=== PATIENT | male | born 1990 | race Caucasian/White ===

== ENCOUNTER 2020-02-20 15:07 | Emergency (ER) | payer SELFPAY ==
[2020-02-20] MEDS ORDERED: ACETAMINOPHEN 500 MG TABLET (FP) PO ONE (15:09)
[2020-02-20] MEDS ORDERED: ONDANSETRON *ODT* 4 MG TABLET SL ONE (15:11)
[2020-02-20 15:12] VITALS: BP 129/72; PULSE 122; TEMP 103.4
--- NOTE | 2020-02-20 15:14 | PDOC ---
Rapid Medical Evaluation Chief Complaint: Cold Symptoms Time Seen by Provider: 02/20/20 15:08 Medical Evaluation: Allergies Allergy/AdvReac Type Severity Reaction Status Date / Time pollen extracts Allergy Verified 02/20/20 15:08 02/20/20 15:11 I performed a brief in-person evaluation of this patient. Pt is a 29 y/o male with cough, fever, bodyaches and general unwell feeling for the last 9 days. He took Tylenol last night. No known COVID contacts, no recent travel Pertinent physical exam findings: + dry cough, nontoxic, general unwell feeling I have ordered the following: cxr, tylenol Patient to proceed to [facility] for further evaluation. Discharge Disposition - Diagnosis Cough - Referrals - Patient Instructions - Post Discharge Activity
--- NOTE | 2020-02-20 15:37 | PDOC ---
History of Present Illness - General Chief Complaint: Cold Symptoms Stated Complaint: COUGH/FEVER Time Seen by Provider: 02/20/20 15:08 History Source: Patient Exam Limitations: No Limitations - History of Present Illness Initial Comments: 02/20/20 15:39 cough with fevers and chill x 9 days. No comoridities. Is this a multiple visit Asthma Patient?: No Timing/Duration: reports: changing over time, getting worse Past History - Travel Traveled outside of the country in the last 30 days: No Close contact w/someone who was outside of country & ill: No - Past Medical History Allergies/Adverse Reactions: Allergies Allergy/AdvReac Type Severity Reaction Status Date / Time pollen extracts Allergy Verified 02/20/20 15:08 Home Medications: Ambulatory Orders Acetaminophen [Tylenol -] 650 mg PO Q4H #40 tablet 02/20/20 Azithromycin [Zithromax -] 250 mg PO UTDICT #6 tab 02/20/20 - Psycho Social/Smoking Cessation Hx Smoking History: Never smoked Information on smoking cessation initiated: No Review of Systems - Review of Systems Able to Perform ROS?: Yes Is the patient limited Kyr[place]z proficient: No Constitutional: Yes: See HPI, Chills, Fever, Malaise HEENTM: Yes: Symptoms Reported, See HPI, Ear Pain Respiratory: Yes: Symptoms reported, See HPI, Cough. No: Wheezing Musculoskeletal: Yes: Symptoms Reported, See HPI, Muscle Pain Integumentary: Yes: Symptoms Reported All Other Systems: Reviewed and Negative *Physical Exam - Vital Signs Last Vital Signs Temp Pulse Resp BP Pulse Ox 103.4 F H 122 H 18 129/72 97 02/20/20 15:09 02/20/20 15:09 02/20/20 15:09 02/20/20 15:09 02/20/20 15:09 - Physical Exam General Appearance: Yes: Nourished, Appropriately Dressed, Moderate Distress HEENT: positive: RADHA, TMs Normal, Rhinorrhea Neck: positive: Tender, Supple. negative: Lymphadenopathy (R), Lymphadenopathy (L) Respiratory/Chest: positive: Rhonchi (with frequent cough.), Wheezing. negative: Lungs Clear, Respiratory Distress Cardiovascular: positive: Regular Rhythm, Regular Rate Gastrointestinal/Abdominal: positive: Soft. negative: Tender Musculoskeletal: positive: Normal Inspection Extremity: positive: Normal Capillary Refill, Normal Inspection Integumentary: positive: Dry, Warm, Pale Neurologic: positive: hospital unit coordinator II-XII NML intact, Fully Oriented, Alert, Normal Mood/Affect, Normal Response, Motor Strength 03/31 ED Treatment Course - Medications Given in the ED: ED Medications Discontinued Medications Generic Name Dose Route Start Last Admin Trade Name Cathy PRN Reason Stop Dose Admin Acetaminophen 1,000 mg 02/20/20 15:09 02/20/20 15:20 Tylenol - PO 02/20/20 15:10 1,000 mg ONCE ONE Administration Ondansetron HCl 4 mg 02/20/20 15:11 02/20/20 15:20 Zofran Odt - SL 02/20/20 15:12 4 mg ONCE ONE Administration ED Progress Note - Progress Note Progress Note: 02/20/20 19:32 ,medicated with Tylenol, CXR shows infiltrates , therefore will treat wit ZPack to cover poss bacterial illness, Prob Covid- Discharge - Discharge Information Problems reviewed: Yes Clinical Impression/Diagnosis: Cough Pneumonia Qualifiers: Pneumonia type: due to unspecified organism Laterality: bilateral Lung location: lower lobe of lung Qualified Code(s): J18.9 - Pneumonia, unspecified organism Condition: Stable Disposition: HOME - Admission No - Additional Discharge Information Prescriptions: Acetaminophen [Tylenol -] 650 mg PO Q4H #40 tablet Azithromycin [Zithromax -] 250 mg PO UTDICT #6 tab - Follow up/Referral - Patient Discharge Instructions Patient Printed Discharge Instructions: DI for Viral Upper Respiratory Infection -- Adult, [facility]-Coronavirus Instructions Additional Instructions: rest, lots of fluids- teas, soups, water, gatorade May use over the counter preparations for symptoms Tylenol ONLY, not Ibuprofen as not indicated with this Sinha Virus Zithromax as directed . Quarantine for next 14 days/ - Post Discharge Activity Work/Back to School Note: Back to Work
== END 2020-02-20 15:57 | disposition home or self-care (01) ==
LOC: JER 15:07
DX: J18.9 Pneumonia, unspecified organism (principal)
CPT/HCPCS: 71045-TC-FY; 99283-25; Q0162